=== PATIENT | female | born 1945 | race Caucasian/White ===

== ENCOUNTER 2018-02-17 07:34 | Day surgery (SDC) | payer OTHER ==
[2018-02-17 08:34] VITALS: BMI 25.7
[2018-02-17] MEDS ORDERED: PROPOFOL 20 ML ONE ×2 (09:21)
[2018-02-17 09:58] VITALS: TEMP 98
[2018-02-17 10:08] VITALS: PULSE 63
[2018-02-17 10:42] VITALS: BP 119/64
--- NOTE | 2018-02-24 13:28 | PATH ---
Surgical Pathology Report Patient Name: KECIA ENGLISH [facility]. Rec. #: [id number] /Age/Gender: 1945 (Age: 72) / F Account: [id number] Location: [facility]-ENDOSCOPY Taken: 02/17/2018 Received: 02/17/2018 Reported: 02/18/2018 Physicians: Florencio Gaming D.O. Specimen(s) Received A: CECAL POLYP B: DESCENDING COLON POLYP Clinical History History of colon polyp Postoperative diagnosis: Diverticulosis, polyp Final Diagnosis A. CECUM, POLYP, POLYPECTOMY: POLYPOID COLONIC MUCOSA WITH MARKED CAUTERY ARTIFACT. B. DESCENDING COLON, POLYP, POLYPECTOMY: COLONIC MUCOSA WITH SMALL LYMPHOID AGGREGATE AND SUPERFICIAL HYPERPLASTIC FEATURES. Electronically Signed Isabel Frank M.D. Gross Description A. Received in formalin, labeled "cecal polyp" are 2 collier, irregular portions of soft tissue measuring 0.1 and 0.3 cm. in greatest dimension. The specimens are submitted in toto in one cassette. B. Received in formalin, labeled "descending colon polyp" is a collier, irregular portion of soft tissue measuring 0.4 cm. in greatest dimension. The specimen is submitted in toto in one cassette. 02/17/201802/17/2018
== END 2018-02-17 10:43 | disposition home or self-care (01) ==
LOC: JASU-ENDO 07:34
PROVIDERS: ATTEND Internal Medicine Gastroenterology
PROC: 0DBG8ZX Excision of Left Large Intestine, Via Natural or Artificial Opening Endoscopic, Diagnostic (ICD-10-PCS; 2018-02-17)
PROC: 0DBH8ZX Excision of Cecum, Via Natural or Artificial Opening Endoscopic, Diagnostic (ICD-10-PCS; principal; 2018-02-17 09:00)
DX: Z51.11 Encounter for antineoplastic chemotherapy (principal); Z86.010 Personal history of colon polyps; K57.30 Diverticulosis of large intestine without perforation or abscess without bleeding; K64.8 Other hemorrhoids; K63.5 Polyp of colon
CPT/HCPCS: 88305-TC

== ENCOUNTER 2018-02-24 08:27 | Day surgery (SDC) | payer OTHER ==
[2018-02-24] MEDS ORDERED: LIDOCAINE HCL 2% (20ML MULTI-DOSE VIAL) NR ONE (08:43)
[2018-02-24] MEDS ORDERED: PROPOFOL 20 ML ONE ×2 (08:43)
[2018-02-24 09:11] VITALS: BMI 26.5
[2018-02-24 10:02] VITALS: TEMP 97.9
[2018-02-24 13:31] VITALS: BP 128/73; PULSE 66
--- NOTE | 2018-02-26 17:08 | PATH ---
Surgical Pathology Report Patient Name: KECIA ENGLISH [facility]. Rec. #: [id number] /Age/Gender: 1945 (Age: 72) / F Account: [id number] Location: U-ENDOSCOPY Taken: 02/24/2018 Received: 02/24/2018 Reported: 02/26/2018 Physicians: Florencio Gaming D.O. Specimen(s) Received A: BX ANTRUM NODULE B: BX SUBMUCOSAL CARDIA NODULE Clinical History Unspecified chronic gastritis without bleeding Postoperative diagnosis: Gastritis, submucosal nodule Final Diagnosis A. STOMACH, ANTRUM, NODULE, BIOPSY: POLYPOID GASTRIC ANTRAL MUCOSA WITH MILD CHRONIC GASTRITIS AND FOCAL INTESTINAL METAPLASIA. IMMUNOHISTOCHEMICAL STAIN FOR H. PYLORI IS NEGATIVE. B. STOMACH, CARDIA, NODULE, BIOPSY: LEIOMYOMA. GASTRIC CARDIAC TYPE MUCOSA WITH MILD CHRONIC GASTRITIS. IMMUNOHISTOCHEMICAL STAIN FOR H. PYLORI IS NEGATIVE. Comment: Part B., A separate fragment of nodular spindle proliferation without significant cytologic atypia is present. Immunohistochemical stains performed at [place], [place] ([id number]) and interpreted at [facility] show this lesion is positive for SMA and desmin, while negative for S100, CD117, and DOG-1, consistent with a leiomyoma. Electronically Signed Isabel Frank M.D. Gross Description A. Received in formalin, labeled "biopsy antrum nodule" are 3 collier, irregular portions of soft tissue ranging from 0.2-0.5 cm. in greatest dimension. The specimens are submitted in toto in one cassette. B. Received in formalin labeled "biopsy nodule in cardia," is a 0.8 x 0.6 x 0.5 cm collier, polypoid portion of soft tissue. Also received within the same container are 4 collier soft tissue fragments ranging from 0.3-0.4 cm in greatest dimension. The specimen is entirely submitted in 2 cassettes as follows: 1-bisected nodule; 2-separately received soft tissue fragments. 02/24/201802/24/2018
== END 2018-02-24 11:00 | disposition home or self-care (01) ==
LOC: JASU-ENDO 08:27
PROVIDERS: ATTEND Internal Medicine Gastroenterology
PROC: 0DB68ZX Excision of Stomach, Via Natural or Artificial Opening Endoscopic, Diagnostic (ICD-10-PCS; principal; 2018-02-24 09:00)
DX: K29.50 Unspecified chronic gastritis without bleeding (principal); K44.9 Diaphragmatic hernia without obstruction or gangrene; D21.4 Benign neoplasm of connective and other soft tissue of abdomen
CPT/HCPCS: 88305-TC; 88342-TC